=== PATIENT | female | born 1945 | race American Indian/Alaskan Native ===

== ENCOUNTER 2017-07-29 12:11 | Emergency (ER) | payer MEDICARE ==
[2017-07-29 13:09] LABS: Basophils % (Auto) 0.8 % (0.0-1.8); Eosinophils % (Auto) 6.4 % (0.0-4.3); Hematocrit 32.8 % (30.3-42.9); Hemoglobin 10.6 gm/dl (10.1-14.3); Mean Corpuscular HGB Conc 32 % (30-34); Mean Corpuscular Volume 79 fl (79-97); Platelet Count 314 K/mm3 (140-440); Red Blood Count 4.15 M/mm3 (3.65-5.03); Red Cell Distribution Width 15.3 % (13.2-15.2); White Blood Count 5.1 K/mm3 (4.5-11.0)
[2017-07-29 13:12] LABS: Mean Corpuscular Hemoglobin 26 pg (28-32)
[2017-07-29 13:28] LABS: Alanine Aminotransferase 8 units/L (7-56); Albumin 4.4 g/dL (3.9-5); Albumin/Globulin Ratio 0.9 %; Alkaline Phosphatase 103 units/L (35-129); Anion Gap 15 mmol/L; BUN/Creatinine Ratio 16.66; Blood Urea Nitrogen 10 mg/dL (7-17); Calcium 9.6 mg/dL (8.4-10.2); Carbon Dioxide 29 mmol/L (22-30); Chloride 97.7 mmol/L (98-107); Glucose 89 mg/dL (65-100); Lipase 32 units/L (13-60); Potassium 3.8 mmol/L (3.6-5.0); Sodium 138 mmol/L (137-145); Total Protein 9.1 g/dL (6.3-8.2)
[2017-07-29 14:59] LABS: Bilirubin,Urine NEG (Negative); Blood,Urine SM (Negative); Ketones,Urine NEG (Negative); Leukocyte Esterase,Urine NEG (Negative); Nitrite,Urine NEG (Negative); Protein,Urine <15 mg/dL mg/dL (Negative); Urobilinogen,Urine < 2.0 mg/dL (<2.0); WBC,Urine < 1.0 /HPF (0.0-6.0)
[2017-07-29] MEDS ORDERED: ALUM-MAG HYDROX-SIMETH 200-200-20MG/5ML PO ONE (18:51)
[2017-07-29 19:08] VITALS: BP 138/72
--- NOTE | 2017-07-29 19:51 | Emergency Department Report ---
HPI - General Chief Complaint: Abdominal Pain Time Seen by Provider: 07/29/17 18:39 - HPI HPI: 71-year-old [place] female coming in is left flank and left lower quadrant pain starting 3 days ago. Patient states the pain feels like gas but she did not take any gas medications. She states that her pain is accompanied by nausea, but no vomiting, no urinary symptoms and no diarrhea. Patient has not taking any medication at home for her symptoms. She denies any exacerbating factors. She denies any alleviating factors. She denies any recent travel, or unusual foods. She denies any sick contacts. MD Complaint: abdominal pain -: Gradual Location: Left flank Radiation: none Migration to: no migration Severity scale (0 -10): 3 Quality: sharp Improves With: nothing Associated Symptoms: nausea, vomiting, chills ED Past Medical Hx - Past Medical History Hx Hypertension: Yes (03) Hx Deep Vein Thrombosis: Yes Hx Arthritis: Yes (WRISTS AND HANDS AND RIGHT KNEE) Hx Asthma: Yes - Surgical History Hx Open Heart Surgery: Yes (2010 MITRAL VALVE REPAIR) Additional Surgical History: HYSTERECTOMY, IVC FILTER , AORTIC DISSECTION REPAIR , - Social History Smoking Status: Never Smoker Substance Use Type: None, Prescribed - Medications Home Medications: Home Medications Medication Instructions Recorded Confirmed Last Taken Type Digoxin [Lanoxin] 0.125 mg PO DAILY 08/11/13 06/27/15 06/26/15 History Diltiazem [Cardizem] 90 mg PO BID 08/11/13 06/27/15 06/27/15 History Furosemide [Lasix] 20 mg PO QDAY 08/11/13 06/27/15 06/26/15 History Lisinopril [Zestril] 2.5 mg PO QDAY 08/11/13 06/27/15 06/27/15 History Potassium Chloride 10 meq PO QDAY 08/11/13 06/27/15 06/26/15 History Simvastatin 20 mg PO QDAY 08/11/13 06/27/15 06/26/15 History Warfarin [Coumadin] 5 mg PO QDAY 08/11/13 06/27/15 06/22/15 History Albuterol Sulfate [Ventolin HFA] 2 puff IH Q4H PRN 06/25/15 06/27/15 06/22/15 History Lovenox 60 mg SUB-Q DAILY PRN 06/27/15 06/27/15 06/26/15 History traMADol [Ultram] 50 mg PO Q6HR PRN #8 tablet 07/29/17 Unknown Rx ED Review of Systems ROS: Stated complaint: LEFT SIDE ABDOMINAL Other details as noted in HPI Comment: All other systems reviewed and negative Eyes: denies: eye pain, eye discharge, vision change ENT: denies: ear pain, throat pain Cardiovascular: denies: chest pain, palpitations Gastrointestinal: abdominal pain, nausea Physical Exam - Physical Exam Vital Signs: Vital Signs 07/29/17 07/29/17 12:19 18:32 Temperature 97.8 F 97.8 F Pulse Rate 106 H 89 Respiratory 18 16 Rate Blood Pressure 144/73 Blood Pressure 138/72 [Left] O2 Sat by Pulse 100 98 Oximetry Physical Exam: - Physical Exam - General Limitations: No Limitations General appearance: alert, in no apparent distress, - Head Head exam: Present: atraumatic, normocephalic - Eye Eye exam: Present: normal appearance - ENT ENT exam: Present: mucous membranes moist - Neck Neck exam: Present: normal inspection - Respiratory Respiratory exam: Present: normal lung sounds bilaterally. Absent: respiratory distress - Cardiovascular Cardiovascular Exam: Present: normal rhythm, normal rate. Absent: systolic murmur, diastolic murmur, rubs, gallop - GI/Abdominal GI/Abdominal exam: Present: soft, normal bowel sounds - Extremities Exam Extremities exam: Present: normal inspection - Back Exam Back exam: Present: normal inspection - Neurological Exam Neurological exam: Present: alert, oriented X3 - Psychiatric Psychiatric exam: normal affect and mood but denies suicidal ideations, denies homicidal ideation - Skin Skin exam: Present: warm, dry, intact, normal color. Absent: rash ED Course Vital Signs 07/29/17 07/29/17 12:19 18:32 Temperature 97.8 F 97.8 F Pulse Rate 106 H 89 Respiratory 18 16 Rate Blood Pressure 144/73 Blood Pressure 138/72 [Left] O2 Sat by Pulse 100 98 Oximetry - Reevaluation(s) Reevaluation #1: 07/29/17 20:28 Patient being fell appears to be comfortable walking around in once to go home. Advised to wait for CT results. ED Medical Decision Making - Lab Data Result diagrams: 07/29/17 12:51 07/29/17 12:51 Critical care attestation.: If time is entered above; I have spent that time in minutes in the direct care of this critically ill patient, excluding procedure time. ED Disposition Clinical Impression: Abdominal pain Qualifiers: Abdominal location: generalized Qualified Code(s): R10.84 - Generalized abdominal pain Disposition: TO HOME OR SELFCARE Is pt being admited?: No Does the pt Need Aspirin: No Condition: Stable Instructions: Abdominal Pain (ED) Prescriptions: traMADol [Ultram] 50 mg PO Q6HR PRN #8 tablet PRN Reason: Pain Referrals: MYKE FREY MD [Primary Care Provider] - 3-5 Days
--- NOTE | 2017-07-29 21:00 | Cat Scan Report ---
FINAL REPORT EXAM: CT ABDOMEN PELVIS W CON HISTORY: abd pain, left flank, h/o aaa that was repaired TECHNIQUE: Serial axial images through the abdomen and pelvis with coronal and sagittal reconstruction. Intravenous administration of 100 milliliters Omnipaque 300 PRIORS: CT abdomen pelvis 08/03/2014 FINDINGS: There atelectasis in the lung bases. No pleural effusion is seen. There is aneurysmal dilatation of the ascending aorta. The visualized portion measures 5 centimeters in diameter. The heart measures 15.8 centimeters in length. Liver appears normal. Gallbladder appears normal. Pancreas appears normal. Spleen appears normal. Adrenal glands appear normal. Inferior vena cava filter is again noted. Kidneys appear normal. Bladder is decompressed. Uterus is absent. No free fluid. Appendix appears normal. Scattered diverticula are seen arising from the colon. There are degenerative changes in the spine. IMPRESSION: 1. Cardiomegaly. 2. Aneurysmal dilatation of the ascending aorta. This is incompletely evaluated in this study. 3. Diverticulosis. 4. No free fluid or inflammatory changes are seen in the abdomen or pelvis.
[2017-07-29] MEDS ORDERED: NACL ONE (21:31)
== END 2017-07-29 21:54 | disposition home or self-care (01) ==
LOC: ED 12:11
DX: R10.84 Generalized abdominal pain (principal); I10 Essential (primary) hypertension; J45.909 Unspecified asthma, uncomplicated; M19.90 Unspecified osteoarthritis, unspecified site; Z86.718 Personal history of other venous thrombosis and embolism
CPT/HCPCS: 36415; 74177; 80053; 81001; 83690; 85025; 99284; Q9967

== ENCOUNTER 2017-08-19 10:51 | Outpatient (CLI) | payer MEDICARE ==
[2017-08-19] MEDS ORDERED: NACL ONE (11:18)
--- NOTE | 2017-08-19 14:38 | Cat Scan Report ---
CTA CHEST: Technique: Helical CT following IV contrast. Sagittal and coronal reformatted images. Rotational MIP images. Findings: Compared to the CT chest with contrast dated 06/16/13. The aorta remains dilated and ectatic. There are diffuse atherosclerotic calcifications. Dilatation of the ascending aorta measures up to 4.8 cm. The aortic arch is dilated up to 4.6 cm. The descending thoracic aorta measures 3.1 cm. The saccular appearing aneurysm in the descending thoracic aorta containing a small amount of mural thrombus measures 5.0 x 4.8 cm. There is no evidence for dissection or rupture. There is moderate cardiomegaly. No pericardial effusion. Central pulmonary arteries are clear. The thyroid gland, tracheobronchial tree and esophagus are within normal limits. The lungs are relatively clear. No advanced parenchymal lung disease. No infiltrate, pleural effusion or pneumothorax. The bony structures are grossly intact. No thoracic adenopathy is visualized. Impression: Dilated ectatic aorta with multiple areas of aneurysmal dilatation as outlined above. Cardiomegaly.
== END 2017-08-19 10:52 | disposition home or self-care (01) ==
LOC: CT 10:51
PROVIDERS: ATTEND Internal Medicine
DX: I51.7 Cardiomegaly (principal); I77.810 Thoracic aortic ectasia; I70.0 Atherosclerosis of aorta
CPT/HCPCS: 71275; Q9967

== ENCOUNTER 2021-01-30 11:07 | Emergency (ER) | payer MEDICARE ==
[2021-01-30 11:13] VITALS: BP 128/69
[2021-01-30] MEDS ORDERED: DIPHtheria,PERTUSSIS(ACELL),TETANUS VACCINE/PF 0.5 ML VIAL IM ONE (11:14)
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
== END 2021-01-30 12:36 | disposition home or self-care (01) ==
LOC: ED 11:07
DX: S61.451A Open bite of right hand, initial encounter (principal); L03.113 Cellulitis of right upper limb; I10 Essential (primary) hypertension; M19.91 Primary osteoarthritis, unspecified site; J45.909 Unspecified asthma, uncomplicated; Z98.890 Other specified postprocedural states; Z90.710 Acquired absence of both cervix and uterus; Z79.2 Long term (current) use of antibiotics; Z79.899 Other long term (current) drug therapy; Z88.2 Allergy status to sulfonamides; Z88.6 Allergy status to analgesic agent; W50.3XXA Accidental bite by another person, initial encounter; Y93.89 Activity, other specified; Y92.89 Other specified places as the place of occurrence of the external cause; Y99.8 Other external cause status
CPT/HCPCS: 90471; 90715